=== PATIENT | female | born 1970 | race Caucasian/White ===

== ENCOUNTER 2021-02-10 10:41 | Emergency (ER) | payer MEDICARE ==
--- NOTE | 2021-02-10 12:38 | NUR ---
Patient's presented stating was Covid positive and was having difficulty breathing. Instructed to stay in car with until a bed became available. There were no open rooms. Went to patient and pulse ox was 97% and HR 95. came into ER lobby and stated they were going to go home. Still no beds available.
== END 2021-02-10 12:41 | disposition left against medical advice (07) ==
LOC: ER 10:42
DX: R06.02 Shortness of breath (principal); Z53.21 Procedure and treatment not carried out due to patient leaving prior to being seen by health care provider